=== PATIENT | female | born 1970 | race Caucasian/White ===

== ENCOUNTER → 2022-06-20 14:14 | Outpatient (BNVA) | payer BC, SELFPAY | PROVIDERS: PCP Nurse Practitioner Family; Visit Provider Internal Medicine | DX: D64.9 Anemia, unspecified (principal); M25.50 Pain in unspecified joint; Z79.899 Other long term (current) drug therapy | CPT/HCPCS: 36415; 71046; 73120; 80053; 82550; 84100; 84443; 85025; 85651; 86140; 86160; 86162; 86200; 86235; 86255; 86376; 86480; 86704; 86803; 87340; 87522 ==

== ENCOUNTER 2022-11-28 12:31 | Outpatient (CLI) | payer BC, SELFPAY ==
[2022-11-28 14:43] LABS: HIV 1 & 2 Antibody Non-Reactive (Non-Reactiv); HIV 1 & 2 Antigen Non-Reactive (Non-Reactiv)
[2022-12-01 23:38] LABS: Hepatitis C Genotype RNA 2
== END 2022-11-28 12:32 | disposition home or self-care (01) ==
LOC: RAD 12:37
PROVIDERS: Internal Medicine; PCP Nurse Practitioner Family; Visit Provider Student in an Organized Health Care Education/Training Program
DX: B19.20 Unspecified viral hepatitis C without hepatic coma (principal)
CPT/HCPCS: 36415; 87806; 87902

== ENCOUNTER 2022-12-12 08:09 | Outpatient (CLI) | payer BC, SELFPAY ==
--- NOTE | 2022-12-12 08:15 | US_ITS ---
WS: [id number] ULTRASOUND ABDOMEN LIMITED CLINICAL INFORMATION: B19.20 - Unspecified viral hepatitis C without hepatic coma COMPARISON: 6 FINDINGS: Liver Size: Normal. Craniocaudal length: 12.1 cm. Echogenicity: Coarse Surface nodularity: None. Mass (size and location): Echogenic nodule suspicious for cavernous hemangioma described below Bile ducts Intrahepatic ducts: Normal. Common bile duct diameter: 0.4 cm. Gallbladder Normal. Gallstones: None. Gallbladder sludge: None. Gallbladder wall thickening: None. Pericholecystic fluid: None. Sonographic Weinberg sign: Absent. Pancreas Normal as visualized. Right kidney: Renal cyst described below Hydronephrosis: None. Size: 9.1 cm x 5.0 cm x 4.3 cm. Abdominal aorta and IVC Visualized portions are normal. Ascites: None. US/US liver [id number] IMPRESSION: 1. Coarse hepatic echotexture likely due to hepatocellular disease. Echogenic portal triads can be seen with hepatitis. 2. Echogenic nodule RIGHT hepatic lobe measuring 7.0 x 9.7 mm most compatible with incidental cavernous hemangioma 3. No intrahepatic biliary dilatation. 4. Normal gallbladder. 5. No hydronephrosis in RIGHT kidney. 6. Incidental simple renal cyst measuring 1.6 x 1.7 cm in the inferior pole
== END 2022-12-12 08:10 | disposition home or self-care (01) ==
LOC: RAD 08:19
PROVIDERS: PCP Nurse Practitioner Family; Visit Provider Student in an Organized Health Care Education/Training Program
DX: B19.20 Unspecified viral hepatitis C without hepatic coma (principal)
CPT/HCPCS: 76705

== ENCOUNTER → 2022-12-15 10:37 | Outpatient (BNVA) | payer BC, SELFPAY | PROVIDERS: PCP Nurse Practitioner Family; Visit Provider Student in an Organized Health Care Education/Training Program | DX: B19.20 Unspecified viral hepatitis C without hepatic coma (principal); K74.60 Unspecified cirrhosis of liver | CPT/HCPCS: 36415; 80053; 85610; 86705; 86706; 86709; 86803; 87340; 87522 ==

== ENCOUNTER 2023-03-14 10:08 | Outpatient (CLI) | payer BC, SELFPAY ==
[2023-03-14 10:15] VITALS: BP 124/69
[2023-03-14] MEDS: albuterol 2.5 mg/3 mL Neb INHALATION (10:15)
[2023-03-14 10:33] VITALS: PULSE 67; RESP 18; O2SAT 98
[2023-03-14 10:38] VITALS: PULSE 70
== END 2023-03-14 10:09 | disposition home or self-care (01) ==
LOC: RT 10:09
PROVIDERS: PCP Nurse Practitioner Family; Visit Provider Internal Medicine Pulmonary Disease
DX: J44.9 Chronic obstructive pulmonary disease, unspecified (principal)
CPT/HCPCS: 94060; 94618; 94726; 94729; J7613

== ENCOUNTER 2023-04-13 09:35 | Outpatient (CLI) | payer BC, SELFPAY ==
--- NOTE | 2023-04-13 10:00 | CT_ITS ---
WS: [id number] LDCT LUNG CANCER SCREENING TECHNIQUE: Noncontrast CT of the chest with coronal and sagittal reformatted images. CLINICAL INFORMATION: Cancer Screen COMPARISON: None. DLP: 37.02 mGy.cm DIvol: Mean CTDIvol: 0.60 (mGy) All CT scans at [facility] use at least one of these dose optimization techniques: automat ed exposure control; mA and/or kV adjustment per patient size (includes targeted exams where dose is matched to clinical indication); or iterative reconstruction. FINDINGS: Aortic calcification. No mediastinal or hilar lymphadenopathy. No axillary lymphadenopathy. Adrenal glands are normal. Normal GE junction. Mild thoracic curve. Oblique Schmorl's nodes in the th oracic spine. Diffuse interstitial thickening. Suspected subpleural honeycombing suspicious for inter stitial lung disease. Recommend correlation with pulmonary function studies and follow-up with HRCT i f indicated. No suspicious pulmonary parenchymal opacities. IMPRESSION:Suspected subpleural honeycombing suspicious for interstitial lung disease versus parasept al emphysema. Recommend correlation with pulmonary function studies and follow-up with HRCT if indica morris. CT/CT lung screening [id number] LUNG-RADS: 2S-Benign Appearance or Behavior with Significant Findings FOLLOW UP: 12 Month: Continue annual screening with LDCT
== END 2023-04-13 09:36 | disposition home or self-care (01) ==
PROVIDERS: PCP Nurse Practitioner Family; Visit Provider Internal Medicine Pulmonary Disease
DX: Z12.2 Encounter for screening for malignant neoplasm of respiratory organs (principal); F17.210 Nicotine dependence, cigarettes, uncomplicated; D64.9 Anemia, unspecified; R06.02 Shortness of breath; J30.2 Other seasonal allergic rhinitis
CPT/HCPCS: 71271; 82785; 85025; 86003